=== PATIENT | male | born 1990 | race Caucasian/White ===

== ENCOUNTER 2023-03-22 08:40 | Emergency (ER) | payer BC, SELFPAY ==
[2023-03-22] MEDS ORDERED: Ketorolac Tromethamine 30 MG/ML VIAL ONE (10:24)
[2023-03-22] MEDS ORDERED: Orphenadrine Citrate 60 MG/2 ML VIAL ONE (10:24)
== END 2023-03-22 11:46 | disposition home or self-care (01) ==
LOC: ERS 08:40
DX: M54.50 Low back pain, unspecified (principal); F17.210 Nicotine dependence, cigarettes, uncomplicated
CPT/HCPCS: 96372; 99283; J1885; J2360